=== PATIENT | male | born 1995 | race Caucasian/White ===

== ENCOUNTER 2018-04-02 18:55 | Emergency (ER) | payer BC ==
[~2018-04-02] VITALS: Ht 182.9 cm; Wt 78.0 kg
[~2018-04-02 18:55] MED LIST: AMOXICILLIN875 MG PO; KEFLEX500 MG PO; LIDOCAINE VISC100 M1 MM; NOHOMEMEDICATIONS; PENICILLIN V P500 MG PO; TRAMADOL 50 MG50 MG PO
[2018-04-02] MEDS ORDERED: TRAMADOL 50 MG50 MG PO (19:33)
[2018-04-02] MEDS ORDERED: NAPROSYN500 MG PO (19:33)
[2018-04-02 19:58] VITALS: BP 130/62
== END 2018-04-02 20:00 | disposition home or self-care (01) ==
LOC: M.ERS 18:55
DX: M79.605 Pain in left leg (principal)